=== PATIENT | male | born 1945 | race Caucasian/White ===

== ENCOUNTER 2022-02-04 11:56 | Emergency (ER) | payer MEDICARE, SELFPAY ==
[2022-02-04 11:57] VITALS: BP 80/46; PULSE 58; RESP 18; TEMP 36.6; O2SAT 95; BMI 26.3
--- NOTE | 2022-02-04 12:09 | EKG12_ITS ---
Test Reason : dizziness Blood Pressure : / mmHG Vent. Rate : 060 BPM Atrial Rate : 060 BPM P-R Int : 254 ms QRS Dur : 138 ms QT Int : 526 ms P-R-T Axes : 041 229 094 degrees QTc Int : 526 ms Sinus rhythm with 1st degree A-V block with Premature atrial complexes Right bundle branch block Inferior infarct , age undetermined Abnormal ECG Confirmed by FERMIN HARRISON, CALLI ([id number]), sound editor SAL ELIAS ([id number]) on 02/05/2022 1:57:35 PM Referred By: Gloria Confirmed By:CALLI CHRISTENSEN MD
--- NOTE | 2022-02-04 12:09 | CT_ITS ---
STUDY: CT BRAIN WITHOUT CONTRAST REASON FOR EXAM: Male, 76 years old. Hypertensive. Blurred vision. RADIATION DOSAGE (If Supplied By Facility): CTDIvol = ( 44.99 ) mGy, DLP = ( 779.24 ) mGycm TECHNIQUE: Transaxial CT imaging of the brain was performed without administration of intravenous contrast material. Individualized dose optimization techniques were used for this CT. COMPARISON: No relevant priors. FINDINGS: Normal soft tissue structures. Normal calvarium. There is mild cerebral atrophy with widening of the extra-axial spaces and ventricular dilatation. Normal white matter tracts of the cerebral hemispheres. Normal basal ganglia and thalami. Normal brainstem. Normal cerebellum. There is no intracranial hemorrhage. There are no findings of an acute ischemic infarction. Atherosclerotic calcification of the cavernous portions of the internal carotid arteries bilaterally. Partial opacification of the ethmoid sinuses bilaterally as well as the frontal sinuses. CT/Brain/Head without Contrast IMPRESSION: Chronic involutional changes of the brain. Partial opacification of the ethmoid sinuses and the frontal sinuses. Electronically Signed: Isaiah Harris MD at 13:32 EDT ,
--- NOTE | 2022-02-04 12:20 | EX.ED.DYSGE1 ---
HPI History of Present Illness Chief Complaint: Dizziness Narrative Narrative: Patient presents with weakness, dizziness which she describes as lightheadedness that started earlier today he was sitting in his wheelchair, when this started his vitals were done and he was found to be hypotensive and sent to the emergency department. No recent fevers or chills, no urinary symptoms, no cough or congestion. No recent medication changes. His stools are normal color, he has not seen any skin changes or pallor. No recent trauma. [facility] Medical History AAA (abdominal aortic aneurysm) Anemia GERD (gastroesophageal reflux disease) Heart failure HTN (hypertension) Parkinson disease Spinal stenosis Allergy/AdvReac Type Severity Reaction Status Date / Time No Known Allergies Allergy Verified 02/04/22 12:02 Social History Smoking Status: Former smoker ROS ROS ED ROS Narrative Past medical history: Reviewed in [facility] and in his [facility] paperwork Medications: Reviewed in the [facility] paperwork Social history: Noncontributory Review of systems: All systems negative except as indicated General: No fever or chills. Lightheadedness as in HPI Eyes: No visual changes ENT: No upper airway congestion, normal voice Neck: No neck pain Cardiovascular: No chest pain Respiratory: No shortness of breath or cough Gastrointestinal: No abdominal pain, nausea vomiting or diarrhea Genitourinary: No dysuria Musculoskeletal: Denies myalgias no difficulty with ambulation Skin: No rash Neurological: No memory loss, confusion or any focal weakness. No vertigo or ataxia. He does not ambulate Psych: No recent behavioral changes Hematologic: No easy bleeding or easy bruising EXAM Physical Exam Narrative Exam Narrative: Physical exam General: Patient appears chronically ill he does not appear in any distress Head: Normocephalic, Atraumatic Eyes: Conjunctiva not pale ENT: Somewhat dry mucous membranes Neck: Supple, Nontender, No lymphadenopathy Cardiovascular: Regular rhythm, slightly bradycardic in the high 50s Respiratory: No distress, CTA bilaterally Abdomen: Soft, Nontender, Nondistended Back: Nontender, Normal Inspection. Negative for: CVA tenderness Extremities: Nontender, No edema Skin: Normal color, No rash, no pallor Neurological: Alert, Normal Strength, Normal Sensation Psychological: Normal affect Const Vital Signs: 02/04/22 11:57 02/04/22 12:02 02/04/22 12:42 Temperature 98 F Temperature Source Oral Pulse Rate 58 L Respiratory Rate 18 Respiratory Effort Normal Non-Labored Blood Pressure 80/46 L 87/57 L Blood Pressure Mean 57 67 Pulse Ox 95 Oxygen Delivery Method Room Air 02/04/22 13:00 Temperature Temperature Source Pulse Rate 55 L Respiratory Rate 17 Respiratory Effort Blood Pressure 91/54 L Blood Pressure Mean 66 Pulse Ox 95 Oxygen Delivery Method Room Air MDM MDM Lab Data Labs: Laboratory Results - last 24 hr 02/04/22 02/04/22 02/04/22 12:13 12:13 12:13 WBC 5.0 RBC 4.06 L Hgb 13.3 Hct 41.5 MCV 102.2 H MCH 32.8 H MCHC 32.0 RDW Std Deviation 54.7 H RDW Coeff of Benson 14.3 Plt Count 124 L MPV 10.0 Immature Gran % (Auto) 0.400 Neut % (Auto) 52.5 Lymph % (Auto) 31.5 [place] % (Auto) 9.0 Eos % (Auto) 6.0 H Baso % (Auto) 0.6 Absolute Neuts (auto) 2.6 Absolute Lymphs (auto) 1.58 Nucleated RBC % 0 Sodium 139 Potassium 3.7 Chloride 105 Carbon Dioxide 28.0 Anion Gap 6 BUN 16 Creatinine 0.56 L Estim Creat Clear Calc 63.88 Est GFR (MDRD) Af Amer 181 Est GFR (MDRD) Non-Af 150 BUN/Creatinine Ratio 28.5 H Glucose 88 Lactic Acid Calcium 9.0 Total Bilirubin 0.70 AST 21 ALT 10 L Alkaline Phosphatase 64 Total Protein 7.0 Albumin 3.2 Globulin 3.8 Albumin/Globulin Ratio 0.8 L Cortisol 12.90 02/04/22 12:13 WBC RBC Hgb Hct MCV MCH MCHC RDW Std Deviation RDW Coeff of [place] Plt Count MPV Immature Gran % (Auto) Neut % (Auto) Lymph % (Auto) [place] % (Auto) Eos % (Auto) Baso % (Auto) Absolute Neuts (auto) Absolute Lymphs (auto) Nucleated RBC % Sodium Potassium Chloride Carbon Dioxide Anion Gap BUN Creatinine Estim Creat Clear Calc Est GFR (MDRD) Af Amer Est GFR (MDRD) Non-Af BUN/Creatinine Ratio Glucose Lactic Acid 1.5 Calcium Total Bilirubin AST ALT Alkaline Phosphatase Total Protein Albumin Globulin Albumin/Globulin Ratio Cortisol Radiography Diagnostic Testing: Clinical Impression(s) from Imaging Studies Brain CT 02/04/22 12:09 IMPRESSION: Chronic involutional changes of the brain. Partial opacification of the ethmoid sinuses and the frontal sinuses. Electronically Signed: Isaiah Harris MD at 13:32 EDT , Chest X-Ray 02/04/22 12:34 IMPRESSION: Mild increase in bilateral infrahilar markings suggestive of atelectasis and/or early infiltrates. Blunting of both costophrenic angles. Electronically Signed: Isaiah Harris MD at 13:31 EDT , EKG Initial EKG: Comments: Sinus rhythm with a rate of 60. WV interval is 254, QTc is also slightly elevated at 526. There is a right bundle branch block pattern. No obvious ischemic changes. Otherwise normal EKG Interpreted by emergency Dr. Treatment and Re-Evaluation Narrative: Patient work-up is unremarkable. He was given IV fluids and significantly improved he did have dry mucous membranes but no laboratory evidence of dehydration. He may need his blood pressure readjusted. I told him to follow-up with his PCP. I did discuss with his PCP, who told me to hold the Lasix for now. The patient wants to be discharged back to the [facility] I think this is reasonable. If anything worsens he is to return Discharge Plan Triage Chief Complaint: Dizziness ED Provider: Ti Castro Dx/Rx/DC Orders Clinical Impression: Dehydration, Lightheadedness Primary Care Provider: Ti Franks Referrals: Ti Franks [Primary Care Provider] - 3-5 Days Activity Restrictions/Additional Instructions: Stop the Lasix until Dr. Franks restarts it. Disposition Disposition: Home, Self Care
[2022-02-04 12:23] LABS: Absolute Lymphocyte Count 1.58 X10^3/uL (0.83-4.51); Absolute Neutrophil Count 2.6 X10^3/uL (2.0-7.7); Basophil# 0.03 X10^3/uL; Basophil% 0.6 % (0-1); Hematocrit 41.5 % (40-54); Hemoglobin 13.3 g/dL (13.0-16.5); Lymphocyte # 1.58 X10^3/ul (0.83-4.51); Lymphocyte % 31.5 % (19-41); Mean Corpuscular Hgb 32.8 pg (27.0-32.0); Mean Corpuscular Volume 102.2 fL (80-94); Monocyte# 0.45 X10^3/uL; NRBC Flagged by Analyzer 0 % (0-5); Neutrophil # 2.63 X10^3/uL (2.7-7.7); Neutrophil % 52.5 % (47-70); Platelet Count 124 K/mm3 (150-450); RBC Distribution Width CV 14.3 % (11.6-14.6); RBC Distribution Width SD 54.7 fl (35.1-43.9); Red Blood Count 4.06 M/mm3 (4.6-6.2)
--- NOTE | 2022-02-04 12:34 | RAD_ITS ---
STUDY: X-RAY CHEST REASON FOR EXAM: Male, 76 years old. Weakness and blurred vision. TECHNIQUE: Single AP portable view of the chest. COMPARISON: None. FINDINGS: EKG electrodes are seen. Mild increased markings in the infrahilar regions bilaterally suggestive of either early infiltrate and/or atelectasis. Blunting of both cosmetic angles. Normal size heart. Normal mediastinum and power. Normal visualized pulmonary arteries. There is atherosclerotic calcification of the aortic arch with tortuosity. There are diffuse degenerative changes of the visualized thoracic spine. There is degenerative osteoarthritis of the bilateral shoulders. There is no demonstrated abnormality of the visualized soft tissue structures of the upper abdomen. RAD/Chest 1 View (Portable) IMPRESSION: Mild increase in bilateral infrahilar markings suggestive of atelectasis and/or early infiltrates. Blunting of both costophrenic angles. Electronically Signed: Isaiah Harris MD at 13:31 EDT ,
[2022-02-04 12:40] LABS: ALB/GLOB Ratio 0.8 RATIO (0.9-2.4); AST(SGOT) 21 U/L (15-37); Alanine Aminotransfer ALT/SGPT 10 U/L (16-61); Albumin, Serum 3.2 g/dL (3.2-5.0); Alkaline Phosphatase 64 U/L (45-117); Anion Gap 6 (5-15); BUN 16 mg/dL (7-18); BUN/Creat Ratio 28.5 RATIO (10-20); Chloride 105 mmol/L (98-107); Creatinine, Serum 0.56 mg/dL (0.70-1.30); EST Glomerular Filtration Rate 150 mL/min (>60); Est Glom Filt Rate - Afr Amer 181 mL/min (>60); Estimated Creatinine Clearance 63.88 ml/min; Globulin 3.8 g/dL (2.2-4.2); Glucose 88 mg/dL (74-106); Potassium 3.7 mmol/L (3.5-5.1); Sodium Level 139 mmol/L (136-145)
[2022-02-04 12:42] VITALS: BP 87/57
[2022-02-04 12:55] LABS: Lactic Acid 1.5 mmol/L (0.4-1.9)
--- NOTE | 2022-02-04 12:56 | ED.RN ---
NO OLD EKG
[2022-02-04 13:00] VITALS: BP 91/54; PULSE 55; RESP 17; O2SAT 95
[2022-02-04 15:09] VITALS: BP 141/86; PULSE 61; RESP 18; O2SAT 97
--- NOTE | 2022-02-04 15:44 | ED.RN ---
PT STATS HE FEELS PRESSURE LIKE HE NEEDS TO URINATE. PT HAS PROSTATE ISSUES. URINAL GIVEN WITH NO OUTPUT. ED PHYSICIAN NOTIFIED AND VOWRB STRAIGHT CATH X 1 WITH 500 OUTPUT
== END 2022-02-04 15:47 | disposition home or self-care (01) ==
PROVIDERS: Emergency Provider Emergency Medicine; PCP Family Medicine; Visit Provider Emergency Medicine
DX: R42 Dizziness and giddiness (principal); G20 Parkinson's disease; Z87.891 Personal history of nicotine dependence; M48.00 Spinal stenosis, site unspecified; I45.10 Unspecified right bundle-branch block; E86.0 Dehydration
CPT/HCPCS: 70450; 71045; 80053; 82533; 83605; 85025; 93005; 99285

== ENCOUNTER 2022-04-16 20:57 | Emergency (ER) | payer MEDICARE, SELFPAY ==
[2022-04-16 20:58] VITALS: BP 137/91; PULSE 70; RESP 20; TEMP 36.3; O2SAT 92; BMI 26.5
--- NOTE | 2022-04-16 21:11 | EX.ED.DYSGE1 ---
HPI History of Present Illness Chief Complaint: GI Bleed Detail of Chief Complaint: Blood in stool and blood in Ocasio Informant: patient and SNF Onset/Context/Timing Onset: - (Uncertain suspect today) Context: Sudden Onset Timing: Continuous Quality: Clot noted at the urethral meatus. No obvious blood in his Ocasio Location: Current Severity: Moderate Maximum Severity: Moderate Worsened by: Unknown Relieved by: Nothing Associated Symptoms Associated Symptoms: Patient states he feels that his bladder is not emptying completely Narrative Narrative: Patient is a 76-year-old male who was sent from nursing facility because of bright red blood in urine and concern for GI bleed. Patient is present iron. Patient states his stool is dark. Patient complains of fullness in the suprapubic area. He apparently is not on an anticoagulant. He denies bruising easily. He denies fever or chills. He denies shortness of breath or chest pain. He denies nausea, vomiting or diarrhea. He denies bruising easily. He states his Ocasio was last changed 1 week ago. There is an order to have it changed monthly. Prior similar symptoms: No Recent Illness/Hospitalization: No PFSH PFSH Medical History AAA (abdominal aortic aneurysm) Anemia GERD (gastroesophageal reflux disease) Heart failure HTN (hypertension) Parkinson disease Spinal stenosis Home Medications sulfamethoxazole 800 mg-trimethoprim 160 mg tablet 1 tab PO BID #14 TABLETS 04/16/22 [Rx Last Taken Unknown] Allergy/AdvReac Type Severity Reaction Status Date / Time No Known Allergies Allergy Verified 04/16/22 21:06 Social History (Updated 04/16/22 @ 21:[address] Phillip Parson MD) household members: none housing: residential Smoking Status: Former smoker substance use type: does not use ROS ROS ED Constitutional Constitutional ED: Denies chills, fever(s), subjective, sweats or weight loss Eyes Eyes: Denies blurry vision, change in vision or diplopia ENT ENT ED: Denies rhinorrhea or sore throat Cardiovascular Cardiovascular: Denies chest pain or palpitations Respiratory/Chest Respiratory/Chest: Denies cough, dyspnea or dyspnea on exertion Gastrointestinal Gastrointestinal: Reports abdominal pain; Denies diarrhea, nausea or vomiting Genitourinary Genitourinary ED: Reports hematuria; Denies dysuria or urinary frequency Musculoskeletal Musculoskeletal: Denies arthralgias, back pain, myalgias or neck pain Integumentary Denies Abrasions or rash Neurologic Neurologic: Denies paresthesias or weakness Endocrine Endocrinology: Denies cold intolerance, heat intolerance or polydipsia Hematologic/Lymphatic Hematologic/Lymphatic: Reports none EXAM Physical Exam Const Vital Signs: 04/16/22 20:58 04/16/22 21:28 Temperature 97.3 F L Temperature Source Oral Pulse Rate 70 67 Respiratory Rate 20 H 18 Blood Pressure 137/91 H 149/92 H Blood Pressure Mean 106 111 Pulse Ox 92 97 Oxygen Delivery Method Room Air Room Air Positive well nourished and well developed General Appearance ED: well developed, NAD and pallor; Negative for cyanotic or diaphoretic HEENT HEENT Narrative: Head is atraumatic no cephalic. Ears normal. Nares patent. Mucosa moist. Teeth normal. Eyes PERRL and EOMs intact bilaterally General Eye ED: Negative for pale conjunctiva or scleral icterus Neck no lymphadenopathy, supple and no JVD Resp normal respiratory effort and clear to auscultation bilaterally Cardio regular rate, regular rhythm, S1 normal heart sound, S2 normal heart sound and no murmurs GI normal to inspection, nondistended, normoactive bowel sounds, non-tender, non-distended and no masses; Negative for hepatosplenomegaly GI Narrative: Complains of fullness in the suprapubic area with deep palpation. Back/Spine no CVA tenderness Cervical Spine: Negative for cervical spine tenderness Thoracic Spine / Upper Back: Negative for thoracic spinal tenderness Lumbar Spine / Lower Back: Negative for lumbar spinal tenderness Extremity normal to inspection General Extremety ED: Negative for edema or tenderness General Extremity: Negative for edema Neuro oriented x3, CN's II-XII intact bilaterally and no sensory deficits noted Sensorium / Orientation: alert Motor Exam: strength 5/5 throughout Psych mental status grossly normal Skin no rashes or lesions noted and no wounds General Skin Exam: pallor; Negative for jaundice MDM MDM MDM Narrative Medical decision making narrative: Patient has dark green stool consistent with iron supplementation. Stool was sent for occult blood. Patient has blood from the meatus. There is no obvious blood in the Ocasio suspect this may be due to trauma. Will obtain UA, CBC to assess white count H&H. BMP to assess for renal function. Suspect patient's blood is due to trauma from the Ocasio. Lab Data Attestation: I reviewed the patient's lab results. Lab results narrative: There is approximately 1 g drop in hemoglobin since January. Stool was positive for occult blood. This may be due to the fact that patient had blood in the perianal and perineum due to blood from the meatus. BUN and creatinine are normal. This would go against an cute GI. Urine is with infection. Urine culture was sent. He was treated with Bactrim. Labs: Laboratory Results - last 24 hr 04/16/22 04/16/22 04/16/22 21:15 21:15 21:15 WBC 6.6 RBC 3.79 L Hgb 12.4 L Hct 37.8 L MCV 99.7 H MCH 32.7 H MCHC 32.8 RDW Std Deviation 52.9 H RDW Coeff of [place] 14.4 Plt Count 131 L MPV 9.4 Immature Gran % (Auto) 0.300 Neut % (Auto) 64.6 Lymph % (Auto) 21.9 [place] % (Auto) 7.8 Eos % (Auto) 4.9 Baso % (Auto) 0.5 Absolute Neuts (auto) 4.3 Absolute Lymphs (auto) 1.44 Nucleated RBC % 0 PT 13.7 INR 1.1 Sodium 133 L Potassium 3.8 Chloride 99 Carbon Dioxide 29.0 Anion Gap 5 BUN 11 Creatinine 0.37 L Estim Creat Clear Calc 63.88 Est GFR (MDRD) Af Amer 295 Est GFR (MDRD) Non-Af 244 BUN/Creatinine Ratio 29.9 H Glucose 102 Calcium 8.4 L Urine Color Urine Clarity Urine pH Ur Specific [place] Urine Protein Urine Glucose (UA) Urine Ketones Urine Occult Blood Urine Nitrite Urine Bilirubin Urine Urobilinogen Ur Leukocyte Esterase Urine RBC Urine WBC Ur Squamous Epith Cells Urine Bacteria Urine Mucus 04/16/22 21:15 WBC RBC Hgb Hct MCV MCH MCHC RDW Std Deviation RDW Coeff of [place] Plt Count MPV Immature Gran % (Auto) Neut % (Auto) Lymph % (Auto) [place] % (Auto) Eos % (Auto) Baso % (Auto) Absolute Neuts (auto) Absolute Lymphs (auto) Nucleated RBC % PT INR Sodium Potassium Chloride Carbon Dioxide Anion Gap BUN Creatinine Estim Creat Clear Calc Est GFR (MDRD) Af Amer Est GFR (MDRD) Non-Af BUN/Creatinine Ratio Glucose Calcium Urine Color [place] Urine Clarity Cloudy Urine pH 7.0 Ur Specific [place] 1.015 Urine Protein 100 H Urine Glucose (UA) Normal Urine Ketones 5 H Urine Occult Blood 250 H Urine Nitrite Positive H Urine Bilirubin Negative Urine Urobilinogen 1 H Ur Leukocyte Esterase 500 H Urine RBC > 100 SEEN Urine WBC >100 SEEN Ur Squamous Epith Cells 0 SEEN Urine Bacteria 3+ Urine Mucus 0 SEEN Discharge Plan Triage Chief Complaint: GI Bleed ED Provider: Phillip Parson Dx/Rx/DC Orders Clinical Impression: Urinary tract infection associated with indwelling urethral catheter, Fecal occult blood test positive, Penile bleeding Instructions: Catheter-Linked Urinary Tract ..., ED Hematuria Prescriptions: New sulfamethoxazole-trimethoprim [sulfamethoxazole-trimethoprim] 800-160 mg tablet 1 tab PO BID Qty: 14 0RF Primary Care Provider: Ti Franks Referrals: Ti Franks [Primary Care Provider] - 3-5 Days Disposition Disposition: Home, Self Care
[2022-04-16 21:25] LABS: Mucous, Urine 0 SEEN /hpf (<or=2+); Squamous Epithelial Cells - UA 0 SEEN /hpf (0-5)
[2022-04-16 21:28] VITALS: BP 149/92; PULSE 67; RESP 18; O2SAT 97
[2022-04-16 21:30] LABS: Absolute Lymphocyte Count 1.44 X10^3/uL (0.83-4.51); Absolute Neutrophil Count 4.3 X10^3/uL (2.0-7.7); Basophil# 0.03 X10^3/uL; Basophil% 0.5 % (0-1); Eosinophil# 0.32 X10^3/uL; Eosinophils% 4.9 % (0-5); Hematocrit 37.8 % (40-54); Hemoglobin 12.4 g/dL (13.0-16.5); Lymphocyte # 1.44 X10^3/ul (0.83-4.51); Lymphocyte % 21.9 % (19-41); Mean Corp Hgb Conc 32.8 g/dL (32-36); Mean Corpuscular Hgb 32.7 pg (27.0-32.0); Mean Corpuscular Volume 99.7 fL (80-94); Mean Platelet Vol. 9.4 fl (6.2-12.0); Monocyte# 0.51 X10^3/uL; Monocyte% 7.8 % (0-10); NRBC Flagged by Analyzer 0 % (0-5); Neutrophil # 4.26 X10^3/uL (2.7-7.7); Neutrophil % 64.6 % (47-70); Platelet Count 131 K/mm3 (150-450); RBC Distribution Width CV 14.4 % (11.6-14.6); RBC Distribution Width SD 52.9 fl (35.1-43.9); Red Blood Count 3.79 M/mm3 (4.6-6.2); White Blood Count 6.6 K/mm3 (4.4-11.0)
[2022-04-16 21:38] LABS: Color, Urine Amber (Yellow); Glucose, Dipstick Normal (Normal); Ketone-Dipstick 5 mg/dl (Negative); Leukocyte Esterase-Dipstick 500 /ul (Negative); Nitrite-Dipstick Positive (Negative); Occult Blood-Urine 250 /ul (Negative); Protein-Dipstick 100 mg/dl (Negative); Specific Gravity, Urine 1.015 (1.002-1.030); Urine Bilirubin Dipstick Negative (Negative); Urine Clarity Cloudy (Clear); Urine Urobilinogen 1 mg/dl (Normal)
[2022-04-16 21:39] LABS: International Normalized Ratio 1.1; Prothrombin Time (Protime)PT. 13.7 SECONDS (11.7-14.9)
[2022-04-16 21:45] LABS: Anion Gap 5 (5-15); BUN 11 mg/dL (7-18); BUN/Creat Ratio 29.9 RATIO (10-20); Calcium,Total 8.4 mg/dL (8.5-10.1); Chloride 99 mmol/L (98-107); Creatinine, Serum 0.37 mg/dL (0.70-1.30); EST Glomerular Filtration Rate 244 mL/min (>60); Est Glom Filt Rate - Afr Amer 295 mL/min (>60); Estimated Creatinine Clearance 63.88 ml/min; Glucose 102 mg/dL (74-106); Potassium 3.8 mmol/L (3.5-5.1); Sodium Level 133 mmol/L (136-145)
[2022-04-16 21:49] LABS: Bacteria 3+ /hpf (None Seen); Red Blood Cells-Urine > 100 SEEN /hpf (0-5); White Blood Cells >100 SEEN /hpf (0-5)
[2022-04-16] MEDS: Smz/Tmp Ds Tablet 1 TABLET PO (22:09)
[2022-04-16 22:56] VITALS: PULSE 70; RESP 15; O2SAT 93
--- NOTE | 2022-04-16 22:58 | ED.RN ---
Nurse at the [facility] updated on pt returning between 2-3am.
[2022-04-16 23:00] VITALS: PULSE 66; O2SAT 92
[2022-04-17] VITALS: PULSE 67; O2SAT 92
--- NOTE | 2022-04-17 02:36 | NURSING ---
[facility] CALLED . BACKED UP AND DELAYED ETA TO 630/45 AM ON 04/17.
[2022-04-17 06:31] VITALS: RESP 16
[2022-04-17 06:32] VITALS: RESP 16
== END 2022-04-17 06:44 | disposition home or self-care (01) ==
PROVIDERS: Emergency Provider Emergency Medicine; PCP Family Medicine; Visit Provider Emergency Medicine
DX: T83.511A Infection and inflammatory reaction due to indwelling urethral catheter, initial encounter (principal); I11.0 Hypertensive heart disease with heart failure; I50.9 Heart failure, unspecified; Z87.891 Personal history of nicotine dependence; R31.9 Hematuria, unspecified; K92.2 Gastrointestinal hemorrhage, unspecified; N39.0 Urinary tract infection, site not specified; X58.XXXA Exposure to other specified factors, initial encounter
CPT/HCPCS: 80048; 81001; 82274; 85025; 85610; 87077; 87086; 87088; 87186; 99285

== ENCOUNTER 2022-07-11 18:06 | Emergency (ER) | payer MEDICARE, SELFPAY ==
[2022-07-11 18:09] VITALS: BP 96/73; PULSE 89; RESP 16; TEMP 37.3; O2SAT 92; BMI 25.0
--- NOTE | 2022-07-11 18:15 | ED.RN ---
PT SATS 88% ON ROOM AIR. 2L NC APPLIED AT THIS TIME
--- NOTE | 2022-07-11 18:36 | CT_ITS ---
We are attempting to reach an attending provider to discuss findings. An addendum with communication details will be sent when the communication is complete. EXAM: CT ABDOMEN AND PELVIS WITHOUT INTRAVENOUS CONTRAST CLINICAL INDICATION: abdominal pain TECHNIQUE: Helically acquired images were obtained of the abdomen and pelvis without intravenous contrast. This CT exam was performed using one or more of the following dose reduction techniques: automated exposure control, adjustment of the mA and/or kV according to patient size, and/or use of iterative reconstruction technique. This report was created using [employer] technology. RADIATION DOSE: CTDIvol = 16.04 mGy, DLP = 905.54 mGy-cm. COMPARISON: None. FINDINGS: LOWER THORAX: Moderate atelectasis bilateral lower lobes and slight bilateral pleural effusions. Coronary artery calcifications. No cardiomegaly. ABDOMEN: LIVER: Unremarkable. Homogeneous. GALLBLADDER AND BILE DUCTS: Gallbladder is distended with wall thickening and pericholecystic edema. Dense material layering in the gallbladder likely due to stones or sludge. No intra- or extrahepatic biliary ductal dilation. PANCREAS: Unremarkable. No focal cystic mass. SPLEEN: Unremarkable. Normal size without focal cystic or solid mass. ADRENALS: Unremarkable. No nodules. KIDNEYS AND URETERS: Numerous nonobstructing stones in the left renal collecting system. Small nonobstructing stone in the right renal pelvis. Parapelvic cyst left kidney. STOMACH AND BOWEL: Relatively large amount of fecal material throughout the colon. Scattered diverticula without diverticulitis. No stomach or bowel distention. PELVIS: APPENDIX: No evidence of acute appendicitis. BLADDER: Unremarkable. REPRODUCTIVE: Unremarkable as visualized. No mass. ABDOMEN and PELVIS: INTRAPERITONEAL SPACE: Unremarkable. No ascites or other fluid collection. No free air. BONES/JOINTS: Right hip arthroplasty. Postoperative changes in the lumbosacral spine with pedicle screws and rods L4-S1. No suspicious lytic or blastic abnormality. SOFT TISSUES: See above. VASCULATURE: Infrarenal abdominal aortic aneurysm measuring 4 cm. LYMPH NODES: Unremarkable. No enlarged lymph nodes. CT/Abdomen/Pelvis without Cont IMPRESSION: 1. Distended gallbladder with wall thickening, pericholecystic edema and stones or sludge. Probable acute cholecystitis. 2. Infrarenal abdominal aortic aneurysm measuring 4 cm. 3. Constipation. 4. Scattered diverticula without diverticulitis. 5. Moderate atelectasis bilateral lower lobes and slight bilateral pleural effusions. 6. Coronary artery disease. 7. Numerous nonobstructing stones in the left renal collecting system. 8. Small nonobstructing stone in the right renal pelvis. 9. Right hip arthroplasty. 10. Parapelvic cyst left kidney. No follow-up imaging necessary. RECOMMENDATIONS: Infrarenal abdominal aortic aneurysm measuring 4 cm. ACR White Paper guidelines (Marlon, et al. JACR 2013; 10(10):789-94) suggest abdomen/pelvis CT or MR imaging follow-up in 1 years. Electronically Signed: Samuel Hodges MD at 19:37 EST ,
--- NOTE | 2022-07-11 18:37 | EDS_ITS ---
HPI History of Present Illness Chief Complaint: Complaint Informant: patient Onset/Context/Timing Onset: Days Narrative Narrative: Patient presents from the [facility] secondary to hematuria and abdominal pain. Patient reportedly complains of pain and full sensation. His catheter is recently been changed out 4 times but he continues to complain of symptoms. He states that sediment will get blocked in the tubing, but does not seem to have a lot of blood clots. Couple days ago he is complaining of epigastric pain that seems to subsided at this time. He does have a known history of abdominal aneurysm. [facility] Medical History AAA (abdominal aortic aneurysm) Anemia Atherosclerotic heart disease of [place] coronary artery without angina pectoris CHF (congestive heart failure) Essential hypertension First degree atrioventricular block by electrocardiogram GERD (gastroesophageal reflux disease) Heart failure History of DVT (deep vein thrombosis) History of left heart catheterization (LHC) (~12/07/12) HTN (hypertension) Kidney cyst, acquired Mixed hyperlipidemia Parkinson disease RBBB Spinal stenosis TIA (transient ischemic attack) Home Medications sulfamethoxazole 800 mg-trimethoprim 160 mg tablet 1 tab PO BID #14 TABLETS 04/16/22 [Rx Last Taken Unknown] Lactobacillus acidophilus (Acidophilus chewable tablet) 1 tab PO DAILY 07/03/22 [History Last Taken Unknown] acetaminophen 325 mg tablet (Tylenol) 650 mg PO BID Pain 07/03/22 [History Last Taken Unknown] acetaminophen 325 mg tablet (Tylenol) 650 mg PO Q8H PRN pain 07/03/22 [History Last Taken Unknown] aspirin 81 mg tablet,delayed release (Adult Low Dose Aspirin) 81 mg PO QHS 07/03/22 [History Last Taken Unknown] atorvastatin 20 mg tablet 20 mg PO QHS 07/03/22 [History Last Taken Unknown] bisacodyl 10 mg rectal suppository 10 mg AL DAILY PRN 07/03/22 [History Last Taken Unknown] carbidopa 25 mg-levodopa 100 mg tablet 1 tab PO TID 07/03/22 [History Last Taken Unknown] entacapone 200 mg tablet 200 mg PO TID 07/03/22 [History Last Taken Unknown] ferrous sulfate 325 mg (65 mg iron) tablet 325 mg PO DAILY 07/03/22 [History Last Taken Unknown] finasteride 5 mg tablet 5 mg PO DAILY 07/03/22 [History Last Taken Unknown] fluticasone propionate 50 mcg/actuation nasal spray,suspension (Flonase Allergy Relief) 1 spray intranasal DAILY 07/03/22 [History Last Taken Unknown] gabapentin 600 mg tablet 600 mg PO TID 07/03/22 [History Last Taken Unknown] guaifenesin 100 mg/5 mL oral liquid 200 mg PO Q4H PRN 07/03/22 [History Last Taken Unknown] hydrocortisone 2.5 % topical ointment 1 applic topical BID 07/03/22 [History Last Taken Unknown] isosorbide mononitrate 30 mg tablet,extended release 24 hr 30 mg PO QAM 07/03/22 [History Last Taken Unknown] loratadine 10 mg tablet (Claritin) 10 mg PO DAILY 07/03/22 [History Last Taken Unknown] magnesium hydroxide 400 mg/5 mL oral suspension (Milk of Magnesia) 30 ml PO DAILY PRN 07/03/22 [History Last Taken Unknown] metoprolol succinate 25 mg tablet,extended release 24 hr 12.5 mg PO DAILY 07/03/22 [History Last Taken Unknown] mineral oil (Fleet Mineral Oil enema) 118 ml AL DAILY PRN 07/03/22 [History Last Taken Unknown] multivitamin (Multiple Vitamins tablet) 1 tab PO DAILY 07/03/22 [History Last Taken Unknown] pantoprazole 40 mg tablet,delayed release 40 mg PO DAILY 07/03/22 [History Last Taken Unknown] polyethylene glycol 3350 17 gram oral powder packet 17 g PO DAILY 07/03/22 [History Last Taken Unknown] tamsulosin 0.4 mg capsule 0.4 mg PO QHS 07/03/22 [History Last Taken Unknown] Allergy/AdvReac Type Severity Reaction Status Date / Time terazosin AdvReac Severe hypotension Verified 07/11/22 18:08 Family History Mother Asthma Hypertension Heart disease CVA (cerebral vascular accident) Father Hypertension Heart disease Surgical History Fracture of tibia Fusion of lumbar spine History of carpal tunnel release Social History household members: none housing: assisted Smoking Status: Former smoker substance use type: does not use ROS ROS ED Constitutional Constitutional ED: Denies chills or fever(s) Eyes Eyes: Denies change in vision or discharge from eye(s) ENT ENT ED: Denies discharge from eye(s), rhinorrhea or sore throat Cardiovascular Cardiovascular: Denies chest pain or palpitations Respiratory/Chest Respiratory/Chest: Denies cough or dyspnea Gastrointestinal Gastrointestinal: Reports abdominal pain; Denies diarrhea, nausea or vomiting Genitourinary Genitourinary ED: Reports hematuria Musculoskeletal Musculoskeletal: Denies back pain or extremity pain Integumentary Denies Abrasions or rash Neurologic Neurologic: Reports weakness; Denies headache(s) Psychiatric Psychiatric: Denies anxiety or depression Allergic/Immunologic Allergic/Immunologic ED: Denies lip swelling or urticaria EXAM Physical Exam Const Vital Signs: 07/11/22 18:09 07/11/22 20:32 07/11/22 21:23 Temperature 99.2 F H Temperature Source Temporal Pulse Rate 89 90 90 Respiratory Rate 16 29 H 21 H Blood Pressure 96/73 80/60 L 88/57 L Blood Pressure Mean 80 66 67 Pulse Ox 92 99 95 Oxygen Delivery Method Nasal Cannula Nasal Cannula Nasal Cannula Oxygen Flow Rate (L/min) 2 3 3 Positive well nourished and well developed General Appearance ED: well developed HEENT Reports normocephalic and head/scalp atraumatic Eyes PERRL and EOMs intact bilaterally Neck supple Chest Wall inspection of chest normal and palpation of chest normal Resp normal respiratory effort and clear to auscultation bilaterally Cardio regular rate and regular rhythm GI GI Narrative: Abdomen soft with mild suprapubic and right upper quadrant tenderness. No guarding or rebound. Ocasio catheter in place. No penile lesions or abnormalities noted. Bloody urine noted in the Ocasio catheter tubing. Palpation: soft Extremity normal to inspection Neuro oriented x3 Sensorium / Orientation: alert Psych mental status grossly normal Skin no rashes or lesions noted MDM MDM MDM Narrative Medical decision making narrative: Lab work obtained to evaluate for leukocytosis, anemia, electrolyte derangement. Urinalysis obtained to evaluate for infection. Given the patient's history of AAA and hematuria a CT flank is obtained. Nursing staff advised the patient was mildly hypoxic on arrival and does not normally wear oxygen. Given this a portable chest x-ray is ordered. Lab Data Attestation: I reviewed the patient's lab results. Labs: Laboratory Results - last 24 hr 07/11/22 07/11/22 07/11/22 18:50 18:50 18:50 WBC 15.9 H RBC 4.25 L Hgb 14.7 Hct 45.2 MCV 106.4 H MCH 34.6 H MCHC 32.5 RDW Std Deviation 57.2 H RDW Coeff of [place] 14.6 Plt Count 120 L MPV 9.6 Immature Gran % (Auto) 1.800 H Neut % (Auto) 90.4 H Lymph % (Auto) 4.5 L [place] % (Auto) 3.1 Eos % (Auto) 0.0 Baso % (Auto) 0.2 Absolute Neuts (auto) 14.4 H Absolute Lymphs (auto) 0.71 L Nucleated RBC % 0 Sodium 137 Potassium 4.9 Chloride 97 L Carbon Dioxide 35.0 H Anion Gap 5 BUN 28 H Creatinine 0.53 L Estim Creat Clear Calc 62.86 Est GFR (MDRD) Af Amer 192 Est GFR (MDRD) Non-Af 159 BUN/Creatinine Ratio 52.5 H Glucose 100 Lactic Acid 1.8 Calcium 9.6 Total Bilirubin 0.90 Direct Bilirubin 0.40 H AST 31 ALT 7 L Alkaline Phosphatase 73 Total Protein 7.8 Albumin 2.5 L Globulin 5.3 H Lipase 38 L Urine Color Urine Clarity Urine pH Ur Specific [place] Urine Protein Urine Glucose (UA) Urine Ketones Urine Occult Blood Urine Nitrite Urine Bilirubin Urine Urobilinogen Ur Leukocyte Esterase Urine RBC Urine WBC Ur Squamous Epith Cells Triple Phos Crystals Urine Bacteria Urine Mucus 07/11/22 20:10 WBC RBC Hgb Hct MCV MCH MCHC RDW Std Deviation RDW Coeff of [place] Plt Count MPV Immature Gran % (Auto) Neut % (Auto) Lymph % (Auto) [place] % (Auto) Eos % (Auto) Baso % (Auto) Absolute Neuts (auto) Absolute Lymphs (auto) Nucleated RBC % Sodium Potassium Chloride Carbon Dioxide Anion Gap BUN Creatinine Estim Creat Clear Calc Est GFR (MDRD) Af Amer Est GFR (MDRD) Non-Af BUN/Creatinine Ratio Glucose Lactic Acid Calcium Total Bilirubin Direct Bilirubin AST ALT Alkaline Phosphatase Total Protein Albumin Globulin Lipase Urine Color Brown Urine Clarity Cloudy Urine pH 9.0 Ur Specific [place] 1.015 Urine Protein 100 H Urine Glucose (UA) Normal Urine Ketones 5 H Urine Occult Blood 250 H Urine Nitrite Negative Urine Bilirubin Negative Urine Urobilinogen Normal Ur Leukocyte Esterase 500 H Urine RBC > 100 SEEN Urine WBC 10-25 SEEN Ur Squamous Epith Cells 0 SEEN Triple Phos Crystals 3+ Urine Bacteria 2+ Urine Mucus 0 SEEN Radiography Chest X-Ray - ED: 1 View, Read by ED Physician, Chronic Changes and - (Poor inspiration) Diagnostic Testing: Clinical Impression(s) from Imaging Studies Abdomen/Pelvis CT 07/11/22 18:36 IMPRESSION: 1. Distended gallbladder with wall thickening, pericholecystic edema and stones or sludge. Probable acute cholecystitis. 2. Infrarenal abdominal aortic aneurysm measuring 4 cm. 3. Constipation. 4. Scattered diverticula without diverticulitis. 5. Moderate atelectasis bilateral lower lobes and slight bilateral pleural effusions. 6. Coronary artery disease. 7. Numerous nonobstructing stones in the left renal collecting system. 8. Small nonobstructing stone in the right renal pelvis. 9. Right hip arthroplasty. 10. Parapelvic cyst left kidney. No follow-up imaging necessary. RECOMMENDATIONS: Infrarenal abdominal aortic aneurysm measuring 4 cm. ACR White Paper guidelines (Khosa, et al. JACR 2013; 10(10):789-94) suggest abdomen/pelvis CT or MR imaging follow-up in 1 years. Electronically Signed: Samuel Hodges MD at 19:37 EST , ADDENDUM: 07/11/221944 IMPRESSION: 1. Distended gallbladder with wall thickening, pericholecystic edema and stones or sludge. Probable acute cholecystitis. 2. Infrarenal abdominal aortic aneurysm measuring 4 cm. 3. Constipation. 4. Scattered diverticula without diverticulitis. 5. Moderate atelectasis bilateral lower lobes and slight bilateral pleural effusions. 6. Coronary artery disease. 7. Numerous nonobstructing stones in the left renal collecting system. 8. Small nonobstructing stone in the right renal pelvis. 9. Right hip arthroplasty. 10. Parapelvic cyst left kidney. No follow-up imaging necessary. RECOMMENDATIONS: Infrarenal abdominal aortic aneurysm measuring 4 cm. ACR White Paper guidelines (Khosa, et al. JACR 2013; 10(10):789-94) suggest abdomen/pelvis CT or MR imaging follow-up in 1 years. N.B. : The above Results were Read Back by Samuel Hodges MD to Rama Baker MD, and understanding confirmed on 07/11/2022 19:38:11 (ET). Electronically Signed: Samuel Hodges MD at 19:37 EST , Chest X-Ray 07/11/22 19:04 IMPRESSION: 1. Low lung volumes limit the exam. No consolidations. 2. No acute cardiopulmonary abnormality. Electronically Signed: Samuel Hodges MD at 19:20 EST , Treatment and Re-Evaluation Narrative: CBC reveals white count of 15.9 with 90% neutrophils. Chemistry studies largely unremarkable. LFTs significant only for direct bili of 0.40, other values all normal. Lipase is normal. Lactic acid is 1.8. Urinalysis reveals greater than 100 RBCs, 10-25 white cells, 2+ bacteria. Nitrites are negative. Blood and urine cultures have been sent. Chest x-ray per my interpretation feels poor inspiration and chronic changes. Radiology interpretation is reviewed. CT scan of the flank reveals concerns for acute cholecystitis. He has a distended gallbladder with wall thickening, pericholecystic edema, stones and sludge. He also has an infrarenal abdominal aortic aneurysm measuring 4 cm. It is recommended this is followed up within a year. He has moderate atelectasis in the bilateral lower lobes with slight pleural effusions. Patient is given a dose of Zosyn. I spoke with surgery here who evaluated his images. She feels the patient would be better served with a Aida tube which we do not have the ability to do on the weekend. I spoke with Dr. Paul, surgery at [facility] as well as Dr. Bonds, hospitalist at [facility]. Patient has been accepted in transfer. Discharge Plan Triage Chief Complaint: Complaint ED Provider: Rama Baker Dx/Rx/DC Orders Clinical Impression: Cholecystitis, Hematuria Prescriptions: No Action Acidophilus Tablet,Chewable 1 tab PO DAILY aspirin [Adult Low Dose Aspirin] 81 mg tablet,delayed release (DR/EC) 81 mg PO QHS atorvastatin 20 mg tablet 20 mg PO QHS bisacodyl 10 mg suppository 10 mg AL DAILY PRN carbidopa-levodopa 25-100 mg tablet 1 tab PO TID loratadine [Claritin] 10 mg tablet 10 mg PO DAILY mineral oil [Fleet Mineral Oil] Enema 118 ml AL DAILY PRN Rx Instructions: discard any unused portion entacapone 200 mg tablet 200 mg PO TID Rx Instructions: administer at the same time as l-dopa/carbidopa dose finasteride 5 mg tablet 5 mg PO DAILY fluticasone propionate [Flonase Allergy Relief] 50 mcg/actuation spray,suspe nsion 1 spray intranasal DAILY Rx Instructions: administer into each nostril gabapentin 600 mg tablet 600 mg PO TID guaifenesin 100 mg/5 mL liquid 200 mg PO Q4H PRN hydrocortisone 2.5 % ointment 1 applic topical BID ferrous sulfate 325 mg (65 mg iron) tablet 325 mg PO DAILY isosorbide mononitrate 30 mg tablet extended release 24 hr 30 mg PO QAM metoprolol succinate 25 mg tablet extended release 24 hr 12.5 mg PO DAILY magnesium hydroxide [Milk of Magnesia] 400 mg/5 mL suspension 30 ml PO DAILY PRN multivitamin [Multiple Vitamins] Tablet 1 tab PO DAILY pantoprazole 40 mg tablet,delayed release (DR/EC) 40 mg PO DAILY polyethylene glycol 3350 17 gram powder in packet 17 g PO DAILY tamsulosin 0.4 mg capsule 0.4 mg PO QHS acetaminophen [Tylenol] 325 mg tablet 650 mg PO Q8H PRN (Reason: pain) acetaminophen [Tylenol] 325 mg tablet 650 mg PO BID sulfamethoxazole-trimethoprim [sulfamethoxazole-trimethoprim] 800-160 mg tablet 1 tab PO BID Qty: 14 0RF Primary Care Provider: Ti Franks Referrals: Ti Franks [Primary Care Provider] - Disposition Disposition: Acute Care Hospital Discharge Location: [facility]
[2022-07-11] MEDS: 0.9% Normal Saline 1,000 ML 150 ML IV (18:59)
--- NOTE | 2022-07-11 19:04 | RAD_ITS ---
EXAM: XR CHEST, 1 VIEW CLINICAL INDICATION: sob TECHNIQUE: Frontal view of the chest. This report was created using iTOK report generation technology. COMPARISON: 02/04/2022. FINDINGS: LUNGS AND PLEURAL SPACES: Low lung volumes limit the exam. No consolidations. No pneumothorax. No effusion. HEART: Unremarkable. Cardiac silhouette not enlarged. MEDIASTINUM: Central airways and mediastinal contour are unremarkable. BONES/JOINTS: Unremarkable. SOFT TISSUES: Unremarkable. RAD/Chest 1 View (Portable) IMPRESSION: 1. Low lung volumes limit the exam. No consolidations. 2. No acute cardiopulmonary abnormality. Electronically Signed: Samuel Hodges MD at 19:20 [facility] ,
[2022-07-11 19:05] LABS: Absolute Lymphocyte Count 0.71 X10^3/uL (0.83-4.51); Absolute Neutrophil Count 14.4 X10^3/uL (2.0-7.7); Basophil# 0.03 X10^3/uL; Basophil% 0.2 % (0-1); Hematocrit 45.2 % (40-54); Hemoglobin 14.7 g/dL (13.0-16.5); Lymphocyte # 0.71 X10^3/ul (0.83-4.51); Lymphocyte % 4.5 % (19-41); Mean Corp Hgb Conc 32.5 g/dL (32-36); Mean Corpuscular Hgb 34.6 pg (27.0-32.0); Mean Corpuscular Volume 106.4 fL (80-94); Mean Platelet Vol. 9.6 fl (6.2-12.0); Monocyte# 0.49 X10^3/uL; Monocyte% 3.1 % (0-10); NRBC Flagged by Analyzer 0 % (0-5); Neutrophil # 14.38 X10^3/uL (2.7-7.7); Neutrophil % 90.4 % (47-70); Platelet Count 120 K/mm3 (150-450); RBC Distribution Width CV 14.6 % (11.6-14.6); RBC Distribution Width SD 57.2 fl (35.1-43.9); Red Blood Count 4.25 M/mm3 (4.6-6.2); White Blood Count 15.9 K/mm3 (4.4-11.0)
[2022-07-11 19:23] LABS: AST(SGOT) 31 U/L (15-37); Alanine Aminotransfer ALT/SGPT 7 U/L (16-61); Albumin, Serum 2.5 g/dL (3.2-5.0); Alkaline Phosphatase 73 U/L (45-117); Anion Gap 5 (5-15); BUN 28 mg/dL (7-18); BUN/Creat Ratio 52.5 RATIO (10-20); Calcium,Total 9.6 mg/dL (8.5-10.1); Chloride 97 mmol/L (98-107); Creatinine, Serum 0.53 mg/dL (0.70-1.30); EST Glomerular Filtration Rate 159 mL/min (>60); Est Glom Filt Rate - Afr Amer 192 mL/min (>60); Estimated Creatinine Clearance 62.86 ml/min; Globulin 5.3 g/dL (2.2-4.2); Glucose 100 mg/dL (74-106); Lipase 38 U/L (73-393); Potassium 4.9 mmol/L (3.5-5.1); Protein, Total 7.8 g/dL (6.4-8.2); Sodium Level 137 mmol/L (136-145)
[2022-07-11 19:28] LABS: Lactic Acid 1.8 mmol/L (0.4-1.9)
[2022-07-11 20:19] LABS: Mucous, Urine 0 SEEN /hpf (<or=2+); Squamous Epithelial Cells - UA 0 SEEN /hpf (0-5)
[2022-07-11 20:32] VITALS: BP 80/60; PULSE 90; RESP 29; O2SAT 99
[2022-07-11 20:51] LABS: Color, Urine Brown (Yellow); Glucose, Dipstick Normal (Normal); Ketone-Dipstick 5 mg/dl (Negative); Leukocyte Esterase-Dipstick 500 /ul (Negative); Nitrite-Dipstick Negative (Negative); Occult Blood-Urine 250 /ul (Negative); Protein-Dipstick 100 mg/dl (Negative); Specific Gravity, Urine 1.015 (1.002-1.030); Urine Bilirubin Dipstick Negative (Negative); Urine Clarity Cloudy (Clear); Urine Urobilinogen Normal (Normal)
[2022-07-11 21:03] LABS: Triple Phosphate Crystals Ur 3+ /hpf (<or=1+)
[2022-07-11 21:04] LABS: Red Blood Cells-Urine > 100 SEEN /hpf (0-5)
[2022-07-11 21:06] LABS: Bacteria 2+ /hpf (None Seen); White Blood Cells 10-25 SEEN /hpf (0-5)
[2022-07-11 21:23] VITALS: BP 88/57; PULSE 90; RESP 21; O2SAT 95
[2022-07-11 23:00] VITALS: BP 107/74; PULSE 86; RESP 18; O2SAT 95
[2022-07-12 01:46] VITALS: BP 112/73; PULSE 94; RESP 20; O2SAT 95
[2022-07-12] MEDS: 0.9% Normal Saline 1,000 ML 150 ML IV (02:27)
[2022-07-12 04:03] VITALS: BP 90/56; PULSE 102; RESP 26; TEMP 36.6; O2SAT 95
== END 2022-07-12 03:30 | disposition short-term general hospital (02) ==
PROVIDERS: Emergency Provider Emergency Medicine; PCP Family Medicine; Visit Provider Emergency Medicine
DX: K81.9 Cholecystitis, unspecified (principal); G20 Parkinson's disease; I11.0 Hypertensive heart disease with heart failure; I50.9 Heart failure, unspecified; I71.40 Abdominal aortic aneurysm, without rupture, unspecified; Z87.891 Personal history of nicotine dependence; R31.9 Hematuria, unspecified; I25.10 Atherosclerotic heart disease of native coronary artery without angina pectoris; E78.2 Mixed hyperlipidemia; Z79.899 Other long term (current) drug therapy; Z79.82 Long term (current) use of aspirin; Z86.718 Personal history of other venous thrombosis and embolism; K21.9 Gastro-esophageal reflux disease without esophagitis; Z86.73 Personal history of transient ischemic attack (TIA), and cerebral infarction without residual deficits
CPT/HCPCS: 71045; 74176; 80048; 80076; 81001; 83605; 83690; 85025; 87040; 87077; 87086; 87088; 87186; 96365; 99285; J7030; J7050; A4216